=== PATIENT | male | born 1970 | race Caucasian/White ===

== ENCOUNTER 2020-08-20 11:29 | Emergency (ER) | payer BC ==
[~2020-08-20 11:29] MED LIST: NORCO 7.5-3251 EACH PO; ONDANSETRON ODT4 MG PO
[2020-08-20] MEDS ORDERED: ENDOCET 5-3251 EACH PO (12:52)
== END 2020-08-20 13:02 | disposition home or self-care (01) ==
LOC: ER1 11:29
DX: S46.211A Strain of muscle, fascia and tendon of other parts of biceps, right arm, initial encounter (principal); X50.0XXA Overexertion from strenuous movement or load, initial encounter; Y92.009 Unspecified place in unspecified non-institutional (private) residence as the place of occurrence of the external cause
CPT/HCPCS: 73060; 99283